=== PATIENT | male | born 1985 | race Caucasian/White ===

== ENCOUNTER 2016-08-03 12:25 | Inpatient (IN) | payer OTHER ==
--- NOTE | ~2016-08-03 | HP ---
Unit #: [id number] #: [id number] Patient: LETY PIERCE [id number] [place] [address] [id number] I MR#: [id number] NAME: LETY PIERCE ROOM: P256 Age: 31 Sex: M Admission Date: 08/03/2016 : 1985 Attending Physician: Joe Alvarado M.D. Admitting Physician: Joe Alvarado M.D. HISTORY AND PHYSICAL HISTORY OF PRESENT ILLNESS The patient is a 31-year-old male admitted to [address] [place] [address] on 08/03/2016 for suicidal ideation. PAST MEDICAL HISTORY 1. Epilepsy 2. Hepatitis C 3. History of polysubstance abuse PAST SURGICAL HISTORY 1. A brain tumor removal 2. Tonsillectomy The patient is unemployed. He lives with his girlfriend. He has a history of polysubstance abuse but hasn't used any drugs in months. FAMILY MEDICAL HISTORY Noncontributory. ALLERGIES No known drug allergies. CURRENT MEDICATIONS Lamictal and Keppra. REVIEW OF SYSTEMS CONSTITUTIONAL: No fever or chills. HEENT: Denies any sore throat, ear pain or runny nose. CARDIOVASCULAR: Denies chest pain, irregular heart rhythm or palpitations. CHEST: Denies shortness of breath or cough. No hemoptysis. GASTROINTESTINAL: Denies nausea, vomiting, diarrhea or chronic constipation. ENDOCRINE: Denies history of increased thirst or urination. No recent significant weight loss or gain. GENITOURINARY: Denies dysuria, frequency, or hematuria. SKIN: The patient complains of knot in his left antecubital space. HEMATOLOGIC: Denies history of increased bleeding or bruising. MUSCULOSKELETAL: Denies any hot, swollen joints. No generalized muscle pain. NEUROLOGIC: Denies problems with vision or speech. No frequent, severe headaches. No numbness, tingling or weakness in any extremities. Denies loss of bladder or bowel control. Unit #: [id number] #: [id number] Patient: LETY PIERCE PHYSICAL EXAM GENERAL: He is awake, alert and oriented in no acute distress. VITAL SIGNS: Temperature 98.5, heart rate 66, respiration 16, blood pressure 152/100. HEIGHT: 5'6". WEIGHT: 199 pounds. SKIN: Note a 1 centimeter cyst and in the left antecubital space of his left arm. HEENT: Normocephalic. TMs not viewed. Oral and nasal passages clear. Conjunctivae clear. PERRLA. EOMs intact. NECK: Supple without lymphadenopathy or thyromegaly. HEART: Regular rate and rhythm without murmur. LUNGS: Clear. ABDOMEN: Soft, nontender. : Not done. EXTREMITIES: No evidence of cyanosis, clubbing or edema. Moves all without focal deficit. NEUROLOGICAL: Grossly within normal limits. Cranial Nerves: II: Visual burks are intact. III, IV AND : Extraocular movements are intact. Pupils are equal, round and reactive to light. V: Facial sensation is grossly normal. VII: Facial movements and expression are normal. VIII: Auditory acuity grossly intact. IX, X: Uvula is midline. Phonation is normal. XI: Patient shrugs shoulders and turns head normally. XII: Tongue protrudes in the midline. Sensory and Motor Function: Sensory and motor sensation is grossly normal. Motor: moves all extremities well. IMPRESSION 1. Psychiatric admission. 2. Epilepsy. 3. Hepatitis C. 4. History of polysubstance abuse. 5. Left antecubital cyst. RECOMMENDATIONS Psychiatric per psychiatrist. MEDICAL: No contraindication to participate in facility activities. MEDICAL PROGNOSIS Good. MEDICAL CONDITION Stable. Dictated by... Julio Cesar Hayes/du TD: 08/04/2016 01:38 Unit #: [id number] #: [id number] Patient: LETY PIERCE JOB #: [id number] HISTORY AND PHYSICAL Page 1 of 1 X LAVERNE SIMS APRN HISTORY AND PHYSICAL
--- NOTE | ~2016-08-03 | PN ---
Unit #: [id number] #: [id number] Patient: LETY PIERCE [id number] [facility] [address] [place] [address] [id number] I MR#: [id number] NAME: LETY PIERCE ROOM: P256 Age: 31 Sex: M Admission Date: 08/03/2016 : 1985 Attending Physician: Joe Alvarado M.D. Admitting Physician: Kristian Linn PROGRESS NOTES DATE 08/10/2016 DISCUSSION This is a 31-year-old white male who is here with issues of ongoing bipolar depression with psychosis. The patient reports overall symptoms with SI hallucinations continue to improve. He reports sleeping better last night. He continues to be going to groups and activities. Staff reported the patient more compliant with redirection in terms of boundaries. The patient denying any acute complaints and did have blood draw this morning. Test results still pending at this time. MENTAL STATUS EXAMINATION GENERAL APPEARANCE: Moderately groomed white male, fairly cooperative, responsive to interview process. Speech was clear and coherent, normal prosody. Mood was "better", less depressed, less constricted affect. Thought process and content are grossly organized and linear. No overt evidence of delusions. Auditory hallucinations improving. SI improving no active plan or intent. The patient's memory is generally intact. Associations are normal. Cognitive function is at baseline. Alert and oriented x4. Insight and judgement is improving. RECOMMENDATIONS We will continue patient's admission for ongoing issues for resolving depression bipolar nature. The patient tolerating medication changes well. Lab results still pending. SI and hallucinations are continuing to resolve most likely disposition to a.m. if progress is maintained. Most likely will require community followup and psych IOP. Dictated by... Kristian Lnin/du TD: 08/11/2016 03:58 JOB #: [id number] Unit #: [id number] #: [id number] Patient: LETY PIERCE PROGRESS NOTES Page 1 of 1 X Joe Alvarado MD PROGRESS NOTE
--- NOTE | ~2016-08-03 | PA ---
Unit #: [id number] #: [id number] Patient: LETY PIERCE [id number] [place] [address] [id number] I MR#: [id number] NAME: LETY PIERCE ROOM: P256 Age: 31 Sex: M Admission Date: 08/03/2016 : 1985 Date of Assessment: 08/04/2016 Attending Physician: Joe Alvarado M.D. Admitting Physician: Joe Alvarado M.D. PSYCHIATRIC ASSESSMENT LOCATION Our [address], room #256, bed #1. DATE OF SERVICE 08/04/2016. INFORMANTS The patient and chart, both seemed reliable. CHIEF COMPLAINT Included my depression has not gotten any better. HISTORY OF PRESENT ILLNESS This is a 31-year-old white male with a longstanding history of significant depressive problems as well as polysubstance dependency. Substances included amphetamines, alcohol, opioids, and "all others that I can get his hands on." He says he has been sober now for about 3 months. The patient has reported longstanding issues with depression that he self-treated with the substances since age of 10. He reports having symptoms now of anhedonia, worthlessness, hopelessness, poor energy, disrupted sleep, a lot of mood swings. He does have a history of being diagnosed bipolar when he was in long-term and put on lithium with good response, but no other treatments and apparently after he was released, he rapidly stopped using as he return to substance abuse. The patient reports motivations now include being there for his 2 daughters as well as surviving family members. Overall, his support is limited. At this time, there is upcoming court issues apparently per the chart and the patient. The patient continues to voice active SI, but no clear plan now. The patient does continue to appear very fearful, fretful, and anxious as well as depressed. The patient compliant per staff and the patient tearful at times during our conversation. PAST PSYCHIATRIC HISTORY Treated inpatient when he was in long-term that was over a year ago, has not been on medication since then and again that was with lithium. No history of actual suicide attempts per se. No history of psychosis. FAMILY HISTORY Significant for grandmother who committed suicide as well as both parents having CD issues and mood problems. SOCIAL HISTORY The patient has 2 children. They are with their own mother's and/or Unit #: [id number] #: [id number] Patient: WHITE,LETY family. The patient is essentially on disability. He does have some support through surviving family, but he is on his own more or less. MEDICAL HISTORY Significant for seizures and a brain tumor removal in 2005 per the chart. MEDICATION HISTORY Included Keppra 1000 mg b.i.d. for seizure prophylaxis as well as Lamictal 150 mg b.i.d. for seizure prophylaxis. ALLERGIES Include no known drug allergies. SUBSTANCE ABUSE HISTORY As noted above, the patient was somewhat vague and overall details with various treatment programs both locally and abroad. No overt significant withdrawal symptoms for him besides heroin, but no history of seizures. MENTAL STATUS EXAMINATION General appearance; he is a limitedly groomed white male, appears somewhat older than stated age, almost disheveled in his appearance. Speech was clear and coherent, normal prosody. The patient was tearful. Mood was depressed and anxious with a congruent affect. Thought process and content were grossly organized and linear. No overt evidence of psychosis. The patient positive for SI at this time, but no clear plan. No HI though. The patient was positive for hopelessness and worthlessness. The patient's memory is grossly intact. Associations are normal. His cognitive functioning was at baseline. Alert and oriented x4. Insight and judgment are poor. ASSETS AND LIABILITIES Assets include some support through family and previous exposure to treatment. Liabilities include limited support, comorbid medical issues, outstanding legal charges. ADMITTING DIAGNOSES 1. Bipolar disorder, depressed, severe, without psychotic features. 2. History of opioid dependency. 3. History of alcohol abuse, unclear about other diagnoses or substances specifically. 4. Seizure disorder. PSYCHIATRIC PLAN Plan will be to continue the patient's admission for safety and stabilization for ongoing issues with his depressed mood and suicidal ideation. The patient had been placed on appropriate precautions and will be started on lithium carbonate ER 450 mg at bedtime to help with mood stabilization. The patient has had a positive response to this in the past and will start there especially given his seizure history, would want to avoid antipsychotics possible since I lowered the seizure threshold. Treatment goal will be resolution of symptoms in a safe controlled environment with discharge planning most likely involving Psych IOP and community followup care for monitoring of his meds. The patient is well versed about the potential side effects of lithium and understands them well for need for monitoring. ESTIMATED LENGTH OF STAY Approximately 5 to 6 days depending on the patient's progress and response Unit #: [id number] #: [id number] Patient: LETY PIERCE to treatment. Dictated by... Kristian Linn/cydney TD: 08/04/2016 23:00 JOB #: [id number] PSYCHIATRIC ASSESSMENT Page 1 of 1 X Joe Alvarado MD X PSYCHIATRIC ASSESSMENT
--- NOTE | ~2016-08-03 | DS ---
Unit #: [id number] #: [id number] Patient: LETY PIERCE [id number] [place] [address] [id number] I MR#: [id number] NAME: LETY PIERCE ROOM: [facility] Age: 31 Sex: M Admission Date: 08/03/2016 : 1985 Discharge Date: 08/11/2016 Attending Physician: Joe Alvarado M.D. DISCHARGE SUMMARY REASON FOR ADMISSION A combination of bipolar depression with suicidal ideation and a history of opiate and alcohol related abuse dependency. DIAGNOSTIC STUDIES Pertinent laboratory data, included, routine blood work that was CMP that was with normal parameters with the exception of AST of 168 and ALT of 322. Ricardo prior to discharge, was noted to be 0.2. CBC was well within normal parameters. Urine screen was positive for marijuana. Urinalysis was positive for 0.02, urobilinogen was otherwise negative, no other tests were performed. HOSPITAL COURSE The patient was admitted for safety and stabilization to the unit for issues of suicidal ideation and depression of a bipolar nature. The patient has had a long-standing history of this treated in the past with lithium but because of substance abuse including opiate dependency and alcohol abuse he came off of this medication several months ago if not years ago, has noticed a steady decline in his presentation. He has been sober now for about three months but has noticed his mood has only gotten worse even when sober. The patient was started on lithium carbonate ER and was titrated up to 600 mg at nighttime. Over the course of the hospitalization, the patient reported his mood getting better. Suicidal ideation resolved, fortunately by the second day of admission from evaluation from my standpoint. He was also reporting issues with auditory hallucinations reporting hearing background chatter that was disturbing and distracting him. No visual hallucinations though. These, too, improved over time as the medications were titrated up that he was also helped with sleep by the way of trazodone 100 mg at bedtime. The patient has a history of seizure disorder and was kept on his home doses of Keppra and Lamictal at his home ranges. The patient went to groups and activities as directed. He did have some peer interaction boundary issues that have had to be redirected by staff but no behavioral issues that had to be managed. He followed direction and care for the most part and there was no overt crossing of the boundaries per staff. At the time of discharge, the patient was denying any SI or HI and his affect was bright. He was positive, goal-motivated to the [facility] program and follow up at [facility] when scheduled. The patient was also focused to go to his daughter's medical appointment tomorrow morning. Overall, the patient was felt to have reached maximum benefit from the inpatient admission and was no longer meeting criteria for dangerousness and was able to be discharged home. Unit #: [id number] #: [id number] Patient: ELTY PIERCE DISCHARGE DIAGNOSES Clayton I Bipolar disorder, depressed, severe with psychotic features. Opiate dependency. Alcohol abuse. Clayton II Clayton III Seizure disorder. Clayton IV Clayton V DISCHARGE INSTRUCTIONS Include follow up care through the [facility] as well as [facility] for the patient to go home with the family. DISCHARGE MEDICATIONS Included: 1. Trazodone 100 mg at bedtime for sleep 2. Ricardo carbonate ER 600 mg at bedtime for mood stabilization 3. Keppra 1000 mg twice a day for seizure prophylaxis 4. Lamictal 150 mg twice a day for seizure prophylaxis and mood stabilization CONDITION AT DISCHARGE Improved. PROGNOSIS Fair if the patient can maintain compliance. DIET AND ACTIVITY Diet is regular and activity is as tolerated with compliance and sobriety both encouraged. Dictated by... Joe Alvarado M.D. LEON/servando TD: 08/11/2016 09:05 JOB #: [id number] DISCHARGE SUMMARY Page 1 of 1 X Joe Alvarado MD X DISCHARGE SUMMARY
--- NOTE | ~2016-08-03 | PN ---
Unit #: [id number] #: [id number] Patient: LETY PIERCE [id number] [place] [address] [id number] I MR#: [id number] NAME: LETY PIERCE ROOM: P256 Age: 31 Sex: M Admission Date: 08/03/2016 : 1985 Attending Physician: Joe Alvarado M.D. Admitting Physician: Joe Alvarado M.D. [facility] PROGRESS NOTES DATE OF SERVICE: 08/05/2016 LOCATION Our [facility], [address] [place] [address], room #256, bed #1. SUBJECTIVE This is a 31-year-old white male who is here with significant issues of bipolar depression. The patient was restarted on lithium last night as well as trazodone for sleep and he did tolerate those well. He reported sleeping well with no residual side effects. He is complaining today of still having depression and suicidal ideation, but no clear plan. The patient also reported that he has been having auditory hallucinations of a background chatter for the last few weeks. There is a new symptom that has him concerned. He denied talking about it yesterday because he was concerned of what it might mean in terms of his overall pathology, but he seemed more willing to discuss it today. No I think of a command nature. No visual hallucinations, but the patient did seem disturbed by the auditory hallucinations and regardless is still significantly depressed and still having active SI. MENTAL STATUS EXAMINATION General appearance, is a limitedly groomed white male, appears older than stated age, fairly cooperative, responsive to the interview process with good eye contact. Speech was clear and coherent with prosody. Mood was depressed with a congruent affect. Thought process and content are fairly organized and linear. No overt evidence of delusions, but the patient reports having vague auditory hallucinations of a background chatter nature. No command, though the patient still having active SI, but no plan today. No HI. The patient's memory is grossly intact. Associations are normal. Cognitive functioning is at baseline. Alert and oriented x4. Insight and judgment are limited. ASSESSMENT AND RECOMMENDATION We will continue the patient's admission for further safety and stabilization, given ongoing issues with depression, suicidal ideation, and probable auditory hallucinations. The patient tolerating the restart of the lithium. He has only had one dose thus far, but further time to stabilize the patient in his current state is crucial to his care for symptoms as noted above. We will continue to monitor regularly and make further adjustments as needed. Dictated by... Unit #: [id number] #: [id number] Patient: LETY PIERCE M.D. SB/cydney TD: 08/05/2016 11:07 JOB #: [id number] [facility] PROGRESS NOTES Page 1 of 1 X Joe Alvarado MD X PROGRESS NOTE
--- NOTE | ~2016-08-03 | PN ---
Unit #: [id number] #: [id number] Patient: LETY PIERCE [id number] [place] [address] [id number] I MR#: [id number] NAME: LETY PIERCE ROOM: P256 Age: 31 Sex: M Admission Date: 08/03/2016 : 1985 Attending Physician: Joe Alvarado M.D. Admitting Physician: Joe Alvarado M.D. [facility] PROGRESS NOTES DATE 08/06/2016 LOCATION [facility], [address] [place] [address], room #256, bed #1. SUBJECTIVE UPDATE This is a 31-year-old white male who is here with bipolar issues and depression. The patient reports sleep has continued to show improvement, but he is still reporting issues with mood instability, intermittent SI, which is improving but still present. The patient still appears fretful at times during the interview, but overall is calmer in comparison to admission. Still having occasional auditory hallucinations of background chatter but denying any command issues. No new symptoms today. MENTAL STATUS EXAMINATION General appearance, is a limitedly groomed white male, appears somewhat older than stated age, fairly cooperative, responsive though with good eye contact. Speech was clear and coherent, normal prosody. Mood was anxious, depressed, with a congruent affect. Through process and content were fairly organized and linear. No overt evidence of psychosis. Positive for SI, but no clear plan today. Positive for auditory hallucinations. No HI. Patient' memory was grossly intact. Associations were normal. Cognitive functioning was at baseline. He was alert and oriented x4. Insight and judgment are limited but improving. ASSESSMENT AND RECOMMENDATION Will continue the patient's admission for ongoing issues for depression symptoms related to his bipolar disorder. Will increase the lithium carbonate ER today to 600 mg, to continue with his aggressive treatment for his symptoms since they are persisting but although improving but is a slow rate. Will change trazodone to p.r.n. as patient reports sleep has improved profoundly. We will continue to monitor the patient's behavior in response to treatment. Encourage compliance with groups and activities. Staff reports patient has had some boundary issues on the unit. Nothing that has required redirection but they are monitoring closely and will continue to encourage proper boundaries with the patient during the interview. Dictated by... Joe Alvarado M.D. Unit #: [id number] #: [id number] Patient: LETY PIERCE LEON/carole TD: 08/07/2016 09:24 JOB #: [id number] [facility] PROGRESS NOTES Page 1 of 1 X Joe Alvarado MD PROGRESS NOTE
--- NOTE | ~2016-08-03 | CO ---
Unit #: [id number] #: [id number] Patient: LETY PIERCE [id number] [facility] [address] [place] [address] [id number] MR#: [id number] NAME: LETY PIERCE ROOM: [facility] Age: 31 Sex: M Admission Date: 08/03/2016 : 1985 Attending Physician: Joe Alvarado M.D. Consultation Date: 08/03/2016 CONSULTATION REPORT ORDERING PROVIDER Dr. Alvarado. REASON FOR CONSULT Knot on the patient's left antecubital space. SUBJECTIVE The patient reports that he has a history of IV drug use and he has shot up in his left arm before. He reports that the knot has been there for several months. It is becoming more tender. He can fully move his arm, his wrist, and hand. Denies any heat or erythema from the area. OBJECTIVE The patient has approximately 1-cm cyst noted on this left antecubital space. It is fully mobile. He has good pulses. There is no erythema or edema. This is mildly tender to palpate. He has full range of motion of his limb. ASSESSMENT Left antecubital cyst. PLAN The patient was given his options for surgery outpatient at this time. I do not feel anything medically is necessary. Dictated by... Cami Colbert A.P.R.N. for Kristian Avendaño/cydney TD: 08/03/2016 18:44 JOB #: [id number] Unit #: [id number] #: [id number] Patient: LETY PIERCE CONSULTATION REPORT Page 1 of 1 X CAMI COLBERT APRN CONSULTATION REPORT
--- NOTE | ~2016-08-03 | PN ---
Unit #: [id number] #: [id number] Patient: LETY PIERCE [id number] [facility] [address] [place] [address] [id number] I MR#: [id number] NAME: LETY PIERCE ROOM: P256 Age: 31 Sex: M Admission Date: 08/03/2016 : 1985 Attending Physician: Joe Alvarado M.D. Admitting Physician: Kristian Linn PROGRESS NOTES DATE 08/07/2016 DISCUSSION SUBJECTIVE UPDATE This is a 31-year-old white male, with ongoing issues of bipolar related depression with suicidal ideation. The patient is continuing to report SI present as well as the vague background chatter, auditory hallucinations, he does say they are better in terms of intensity and frequency but both are still present. The patient reports that he tolerated the increased lithium last night but did note even with the trazodone his sleep was poorer compared to the night before. The patient's eye contact continues to be moderate at best and affect depressed. No acting out or behavioral issues. The patient has been compliant with the care. MENTAL STATUS EXAMINATION General appearance is a limitedly groomed white male who appears older than stated age, fairly cooperative, moderate eye contact today. Speech was clear and coherent. Mood was depressed with a constricted affect. Thought process and content were grossly organized, linear, no overt evidence delusions. Patient continuing to have auditory hallucinations of a non-descript nature that are improving. He continues to have suicidal ideation that is improving but still present, no HI. The patient's memory is grossly intact. Associations were normal. Cognitive functioning is at baseline x4. Insight and judgment is limited but improving slowly. RECOMMENDATIONS We will continue the patient's admission for safety and stabilization for ongoing issues with his depression. The patient tolerating increased lithium, will continue to monitor with likely check on lithium level in the next 24 to 48 hours if possible. The patient continuing to have active SI and psychosis which is concerning, will monitor progress and make determination for further disposition care as that improves. Dictated by... Kristian Linn/servando TD: 08/08/2016 05:58 JOB #: [id number] Unit #: [id number] #: [id number] Patient: STANLETY BOGGSYEN PROGRESS NOTES Page 1 of 1 X Joe Alvarado MD PROGRESS NOTE
--- NOTE | ~2016-08-03 | PN ---
Unit #: [id number] #: [id number] Patient: LETY PIERCE [id number] [facility] [address] [place] [address] [id number] I MR#: [id number] NAME: LETY PIERCE ROOM: P256 Age: 31 Sex: M Admission Date: 08/03/2016 : 1985 Attending Physician: Joe Alvarado M.D. Admitting Physician: Kristian Linn PROGRESS NOTES DATE 08/08/2016 SUBJECTIVE UPDATE This is a 31-year-old white male with ongoing issues of bipolar depression. Patient reports today overall that mood is doing better. He is still having occasional issues with significant depression and suicidal ideation but those are improving as are his "auditory hallucinations." Patient reports last night he had a bad phone call with his ex- regarding their child and that made him very upset and he noticed at that point when he became upset that the background voices flared up again. Patient reports feeling okay at the moment. He is more calm. He says he is still ____ somewhat today but better compared to this point yesterday. Sleep was improved last night even with increased stressor with the call. Staff reports patient has been compliant with groups and activities. Still needing some redirection with peers at times but no behavioral issues that need management. MENTAL STATUS EXAMINATION General appearance is a moderately groomed white male improved today. Speech was clear and coherent. Mood was "better," less depressed with a congruent affect. Thought processes and content are grossly organized, linear. No overt psychosis at this moment. Hallucinations are improving. SI is present but improving. No HI. Patient's memory is grossly intact. Associations are normal. Cognitive functioning is at baseline. Alert and oriented times four. Insight and judgement is improving, still limited. RECOMMENDATIONS Continue patient's admission for safety and stabilization. Overall the increase in lithium seems to be effective. Will monitor patient's response and treatment and make sure that the improvements are maintained. Patient has shown fluctuation in last 48 hours up and down, so further monitoring is appropriate. Will continue care at this time. Patient is continuing to receive direction for appropriate interaction with peers and staff and direction for follow up with groups and activities. Dictated by... Joe Alvarado M.D. /dalila Unit #: [id number] #: [id number] Patient: LETY PIERCE TD: 08/08/2016 22:39 JOB #: [id number] BRIAN PROGRESS NOTES Page 1 of 1 X Joe Alvarado MD PROGRESS NOTE
--- NOTE | ~2016-08-03 | PN ---
Unit #: [id number] #: [id number] Patient: LETY PIERCE [id number] [facility] [address] [place] [address] [id number] I MR#: [id number] NAME: LETY PIERCE ROOM: P256 Age: 31 Sex: M Admission Date: 08/03/2016 : 1985 Attending Physician: Joe Alvarado M.D. Admitting Physician: Kristian Linn PROGRESS NOTES DATE 08/09/2016 DISCUSSION This is a 31-year-old white male who is here with issues of ongoing depression, bipolar type, with suicidal ideation. Patient reports not sleeping well last night largely due to roommate causing a disturbance in the room and difficulty going back to sleep after that. He does report his mood overall is continuing to do fairly well. Suicidal ideation is improving as are the hallucinations. Patient continues to need redirection from staff regarding interaction with peers but that is not escalating. Overall the patient's affect was brighter today. He reports feeling better. Discussed the necessity for lab drawn in the morning, the patient agreed. MENTAL STATUS EXAMINATION GENERAL APPEARANCE: Moderately groomed white male, somewhat improved today. Speech was clear and coherent in ____. Mood was "better", less depressed with a congruent affect. Thought process and content are grossly organized and linear. No overt evidence of delusions. Hallucinations are resolving. SI is resolving, no plan. No HI. Patient's memory was grossly intact. Associations were normal. Cognitive function was at baseline. He is alert and oriented x4. Insight and judgement improving. RECOMMENDATIONS We will continue patient's admission for safety and stabilization. Overall patient making good progress with care. SI and depression are resolving as are the "auditory hallucinations." Patient continuing to work on boundaries with peers, but is attending groups and activities and following directions. No management issues or behavioral problems otherwise. Continue to monitor regularly while on the unit. Dictated by... Kristian Linn TD: 08/10/2016 11:22 JOB #: [id number] Unit #: [id number] #: [id number] Patient: LETY PIERCE PROGRESS NOTES Page 1 of 1 X Joe Alavrado MD X PROGRESS NOTE
[2016-08-04 09:44] LABS: BASOPHIL# 0.1 X10e3 (0-0.3); EOSINOPHIL# 0.4 X10e3 (0-0.7); EOSINOPHIL% 5.4 % (0.0-7.0); HEMATOCRIT 44.7 % (38.0-50.0); LYMPHOCYTE# 1.6 X10e3 (1.0-3.5); LYMPHOCYTE% 22.1 % (17.0-45.0); MEAN CELL VOLUME 89.4 FL (83-96); MEAN CORPUSCULAR HEMOGLOBIN 29.9 PG (28-34); MEAN CORPUSCULAR HGB CONC 33.5 g/dL (30-36); MEAN PLATELET VOLUME 7.6 FL (6.5-11.5); MONOCYTE# 0.9 X10e3 (0-1.0); MONOCYTE% 12.2 % (3.0-12.0); NEUTROPHIL# 4.2 X10e3 (1.5-7.1); NEUTROPHIL% 59.3 % (40-75); PLATELET COUNT 250 X10e3 (140-420); RED BLOOD COUNT 5.01 X10e (3.90-5.60); WHITE BLOOD COUNT 7.1 X10e3 (4.0-10.5)
[2016-08-04 09:56] LABS: DIFF IND NO
[2016-08-04 10:09] LABS: THYROID STIMULATING HORMONE 0.75 uIU/ml (0.34-5.60)
[2016-08-04 10:10] LABS: ALBUMIN SERUM 4.3 g/dL (3.5-5.0); BILIRUBIN,TOTAL 1.1 mg/dL (0.2-2.0); BUN/CREATININE RATIO 11.11; CALCIUM SERUM 9.3 mg/dL (8.4-10.2); CREATININE SERUM 0.9 mg/dL (0.6-1.4); GLOM FILT RATE Estimated 112.6 mL/min (>60); POTASSIUM 4.8 mmol/L (3.5-5.1); PROTEIN TOTAL SERUM 6.8 g/dL (6.0-8.3)
[2016-08-04 10:17] LABS: FREE THYROXIN (T4) 0.66 ng/dL (0.58-1.64)
[2016-08-08 09:35] LABS: URINE APPEARANCE CLEAR; URINE BILIRUBIN NEG (NEG); URINE BLOOD NEG (NEG); URINE COLOR YELLOW; URINE GLUCOSE NEG (NEG); URINE KETONE NEG (NEG); URINE LEUKOCYTE ESTERASE NEG (NEG); URINE NITRATE NEG (NEG); URINE PH 6.5 (5-8); URINE PROTEIN NEG (NEG); URINE SPECIFIC GRAVITY 1.016 (1.003-1.035); URINE UROBILINOGEN 0.2 MG/DL (NEG)
[2016-08-08 10:04] LABS: AMPHETAMINE NEG (NEG); BARBITURATES NEG (NEG); BENZODIAZEPINES NEG (NEG); COCAINE NEG (NEG); MARIJUANA POS (NEG); OPIATES NEG (NEG); TRICYCLIC ANTIDEPRESSANTS NEG (NEG); U METHADONE NEG (NEG)
== END 2016-08-11 10:50 | disposition home or self-care (01) | DRG 885 ==
LOC: P2L 12:25
PROVIDERS: Psychiatry & Neurology Psychiatry
DX: F31.5 Bipolar disorder, current episode depressed, severe, with psychotic features (principal); F11.20 Opioid dependence, uncomplicated; R45.851 Suicidal ideations; Z81.8 Family history of other mental and behavioral disorders; D23.62 Other benign neoplasm of skin of left upper limb, including shoulder; F10.20 Alcohol dependence, uncomplicated; G40.909 Epilepsy, unspecified, not intractable, without status epilepticus; B19.20 Unspecified viral hepatitis C without hepatic coma
CPT/HCPCS: 80053; 80178; 80307; 81003; 84439; 84443; 85025

== ENCOUNTER 2016-08-27 21:00 | Inpatient (IN) | payer OTHER ==
--- NOTE | ~2016-08-27 | PA ---
Unit #: [id number] #: [id number] Patient: LETY PIERCE JR [id number] [place] [address] [id number] I MR#: [id number] NAME: LTEY PIERCE JR ROOM: P258 Age: 31 Sex: M Admission Date: 08/27/2016 : 1985 Date of Assessment: 08/28/2016 Attending Physician: Shahid Hannon M.D. Admitting Physician: Shahid Hannon M.D. Primary Care Physician: Marisela Hoffman PSYCHIATRIC ASSESSMENT INFORMANTS The patient reliability, fair; chart reliability, good. CHIEF COMPLAINT Depression. HISTORY OF PRESENT ILLNESS Lety Pierce is a 31-year-old white male, seen on 2-Thao with the above-mentioned complaint. The patient reported increase in depression, history of previous admission at [facility] [place] and [place], currently receiving outpatient services in [facility]. The patient presented due to increase in depression and suicidal ideation. In the last 24 hours, the patient reported receiving legal news involving the custody of his youngest child while increased depression, suicidal ideation, and suicidal thoughts. The patient reported decreased energy, hopelessness, worthlessness, inability to complete his ADL, withdrawn, isolative, and flat affect. The patient reported not having anything to live for. The patient reported unable to contract for safety. At this time, he reports takes medication. The patient also reported hearing a voice or noise in his head. The patient denied any other psychotic symptom. The patient reported smoking marijuana daily, but denied any use of other substances. The patient is needing inpatient admission at this time for psychiatric stabilization. PAST PSYCHIATRIC HISTORY Remarkable for history of previous treatment in [facility] level of care, treatment at [facility] and in [place] as an inpatient for chemical dependency and depression. FAMILY HISTORY AND SOCIAL HISTORY The patient has a poor support system. History of substance abuse in immediate family member. Reported depression in father and grandmother. No known history of any abuse. MEDICAL HISTORY History of hepatitis C, history of brain tumor, and epilepsy. Musculoskeletal; muscle strength and tone, no atrophy or abnormal movement. Gait normal. MEDICATION HISTORY The patient is currently on Keppra 1000 mg b.i.d., lithium carbonate 300 mg at bedtime, Lamictal 150 mg b.i.d., and trazodone 100 mg at bedtime. ALLERGIES Unit #: [id number] #: [id number] Patient: LETY PIERCE JR No known drug allergies. SUBSTANCE ABUSE HISTORY Marijuana abuse; age of onset 10; crack cocaine, age of onset 16; opioid, age of onset 20; amphetamine, age of onset 10; benzodiazepine, age of onset 11; and synthetic substances, age of onset 28. The patient reported longest period of sobriety, 7-1/2 months. The patient reported last period of sobriety, 04/2016. The patient reported history of blackouts, history of hepatitis, history of IV drug use, but no withdrawal symptoms except for vomiting, nausea, and depression. MENTAL STATUS EXAMINATION CONSTITUTIONAL: Measurement of vital signs; temperature 98.3, pulse 98, respirations 16, and blood pressure 129/84. Height 5 feet 4 inches and weight 185 pounds. GENERAL APPEARANCE: The patient dressed casually. The patient did not show any facial deformity. MUSCULOSKELETAL: Please see above. PSYCHIATRIC EXAMINATION Description of speech; regular rate, normal volume, normal articulation, coherent. Description of thought process, goal directed. Description of association, intact. Description of abnormal psychotic thinking; the patient denied any hallucination or delusions, but depression, suicidal ideation, and history of marijuana abuse. Description of the patient's judgment: Concerning everyday activity, poor. Social situation, poor. Concerning psychiatric condition, poor. Complete mental status examination; oriented in time, place, and person. Recent and remote memory, fair. Attention span and concentration, fair. Language; able to name object, repeat phrases. Fund of knowledge; aware of current event, passive vocabulary intact. Mood and affect, sad and dysphoric. Insight and judgment, fair to poor. ASSETS AND LIABILITIES The patient is articulate and able to take care of his ADL. Liability, history of depression and substance abuse. ADMITTING DIAGNOSES Psychiatric: 1. Major depressive disorder, recurrent, severe, F33.3. 2. Cannabis abuse, moderate, F12.20. Secondary diagnosis: Deferred. Medical diagnoses: History of seizure disorder, history of brain tumor, history of hepatitis C. Stressors: Psychosocial stressors. PSYCHIATRIC PLAN, TREATMENT GOAL, AND DISCHARGE PLAN 1. Advised to admit the patient on the inpatient unit. Provide safe, supportive, and structured environment. 2. Ordered labs; CBC, CMP, UA, and UDS. 3. Advised to continue with home medications; Lamictal, Zyprexa, Keppra, Desyrel, and Lithobid. If needed, consider SSRI. 4. The patient is to attend all the programing, group therapy, individual therapy, and medication management. 5. Treatment goal is to attain euthymic mood, gain insight into his Unit #: [id number] #: [id number] Patient: LETY PIERCE JR problem, and learn coping skills. 6. Discharge plan: Plan is to stabilize the patient and consider followup in outpatient program. ESTIMATED LENGTH OF STAY 5 days. Dictated by... Kristian Child/cydney TD: 08/29/2016 01:43 JOB #: [id number] PSYCHIATRIC ASSESSMENT Page 1 of 1 X Shahid Hannon MD X PSYCHIATRIC ASSESSMENT
--- NOTE | ~2016-08-27 | DS ---
Unit #: [id number] #: [id number] Patient: LETY PIERCE JR [id number] [place] [address] [id number] I MR#: [id number] NAME: LETY PIERCE JR ROOM: P258 Age: 31 Sex: M Admission Date: 08/27/2016 : 1985 Discharge Date: 09/01/2016 Attending Physician: Shahid Hannon M.D. Primary Care Physician: Marisela Hoffman DISCHARGE SUMMARY REASON FOR ADMISSION Depression and suicidal ideation. DIAGNOSTIC STUDIES LABORATORY RESULTS: Remarkable for urine drug screen positive for amphetamine and marijuana. HOSPITAL COURSE The patient was admitted to inpatient unit on 08/27/2016 and discharged on 09/01/2016. The patient was treated on the inpatient unit with group therapy, individual therapy, and medication management. The patient responded well with the above modalities of treatment. The patient was subsequently discharged with a plan to follow up in outpatient program. DISCHARGE MEDICATIONS Lithobid SR 600 mg at bedtime for mood stabilization, trazodone 100 mg at bedtime for sleep, Keppra 1000 mg b.i.d. for seizure disorder, Zyprexa 10 mg daily for mood stabilization, Lamictal 150 mg b.i.d. for seizure disorder, and Celexa 20 mg daily for depression. DISCHARGE DIAGNOSES Psychiatric: 1. Bipolar mood disorder, not otherwise specified, F31.89. 2. Cannabis abuse, moderate, F12.20. Secondary diagnosis: Deferred. Medical diagnoses: History of seizure disorder, history of brain tumor, history of hepatitis C. Stressors: Psychosocial stressors. DISCHARGE INSTRUCTIONS The patient is to follow up in outpatient clinic as per social work specialist. CONDITION ON DISCHARGE The patient was pleasant and cooperative. Denied any psychotic symptom or any suicidal ideation. PROGNOSIS Guarded. DIET AND ACTIVITY As tolerated. Unit #: [id number] #: [id number] Patient: LETY PIERCE JR Dictated by... Kristian Child/cydney TD: 09/02/2016 03:10 JOB #: [id number] DISCHARGE SUMMARY Page 1 of 1 X Shahid Hannon MD DISCHARGE SUMMARY
--- NOTE | ~2016-08-27 | PN ---
Unit #: [id number] #: [id number] Patient: LETY PIERCE JR [id number] [facility] [address] [place] [address] [id number] MR#: [id number] NAME: LETY PIERCE JR ROOM: P258 Age: 31 Sex: M Admission Date: 08/27/2016 : 1985 Attending Physician: Shahid Hannon M.D. Admitting Physician: Shahid Hannon M.D. Primary Care Physician: Marislea TORRES PROGRESS NOTES DATE OF SERVICE: 08/30/2016 DISCUSSION Lety Pierce is a 31-year-old male, seen on 08/30/2016. The patient interviewed, chart reviewed, and obtained information from nursing staff. The patient continues to be isolative, flat affect, guarded, withdrawn, isolative. The patient's vital signs stable temperature 98.4, . REVIEW OF SYSTEMS Complete review of systems unremarkable. MENTAL STATUS EXAMINATION General appearance, the patient dressed casually. Attention span and concentration, fair. Oriented in place and person. Mood and affect, sad, depressed, withdrawn, isolative, guarded, passive, SI. Denied any homicidal ideation or psychotic symptom. Recent and remote memory, poor. Insight and judgment, poor. DIAGNOSIS Bipolar mood disorder, not otherwise specified. ASSESSMENT/PLAN Advised to continue with current medication and therapeutic protocol. If needed, consider further adjustment of medication. Dictated by... Kristian Child/cydney TD: 09/01/2016 01:22 JOB #: [id number] Unit #: [id number] #: [id number] Patient: LETY PIERCE JR [facility] PROGRESS NOTES Page 1 of 1 X Shahid aHnnon MD PROGRESS NOTE
--- NOTE | ~2016-08-27 | HP ---
Unit #: [id number] #: [id number] Patient: LETY PIERCE JR [id number] [place] [address] [id number] I MR#: [id number] NAME: LETY PIERCE JR ROOM: P258 Age: 31 Sex: M Admission Date: 08/27/2016 : 1985 Attending Physician: Shahid Hannon M.D. Admitting Physician: Shahid Hannon M.D. Primary Care Physician: Marisela Hoffman HISTORY AND PHYSICAL Lety is a 31-year-old male admitted to [address] [place] [address] on 08/27/2016 for depression. He had a recent admission on 08/03/2016. I have reviewed the history and physical from that admission and there are no changes. Dictated by... Julio Cesar Lemus/dalila TD: 08/28/2016 18:03 JOB #: [id number] HISTORY AND PHYSICAL Page 1 of 1 X QUANG LUNA APRN HISTORY AND PHYSICAL
--- NOTE | ~2016-08-27 | PN ---
Unit #: [id number] #: [id number] Patient: LETY PIERCE JR [id number] [facility] [address] [place] [address] [id number] I MR#: [id number] NAME: LETY PIERCE JR ROOM: P258 Age: 31 Sex: M Admission Date: 08/27/2016 : 1985 Attending Physician: Shahid Hannon M.D. Admitting Physician: Shahid Hannon M.D. Primary Care Physician: Marisela TORRES PROGRESS NOTES DATE 08/29/2016 DISCUSSION Lety Pierce is a 31-year-old male seen on 08/29/2016. The patient interviewed, chart reviewed. Obtained information from nursing staff. The patient continues to be isolative, flat affect, withdrawn. The patient still having suicidal ideation unable to contract for safety. The patient compliant with medication. Complete review of systems unremarkable. MENTAL STATUS EXAMINATION General appearance, the patient dressed casually. Attention span and concentration fair. Oriented to time, place and person. Mood and affect sad, dysphoric. Speech slow in volume and rate. Thought process circumstantial. The patient denied any thoughts of harming others but having suicidal ideation, guarded, withdrawn, isolative. Recent and remote memory poor. Insight and judgement poor. DIAGNOSES Bipolar mood disorder NOS ASSESSMENT/PLAN Advise to continue with current medication and therapeutic protocol. If needed consider further adjustment of medication. Dictated by... Kristian Child/du TD: 09/01/2016 02:09 JOB #: [id number] Unit #: [id number] #: [id number] Patient: LETY PIERCE JR [facility] PROGRESS NOTES Page 1 of 1 X Shahid Hannon MD X PROGRESS NOTE
--- NOTE | ~2016-08-27 | PN ---
Unit #: [id number] #: [id number] Patient: LETY PIERCE JR [id number] [facility] [address] [place] [address] [id number] I MR#: [id number] NAME: LETY PIERCE JR ROOM: P258 Age: 31 Sex: M Admission Date: 08/27/2016 : 1985 Attending Physician: Shahid Hannon M.D. Admitting Physician: Shahid Hannon M.D. Primary Care Physician: Dread Nevarez PROGRESS NOTES DATE OF SERVICE 08/31/2016 DISCUSSION Lety Pierce is a 31-year-old male. Patient interviewed, chart reviewed, and obtained information from nursing staff. Patient compliant and cooperative. Mood sad, dysphoric. Flat affect, guarded. Patient did not show any aggressive behavior. Withdrawn and isolative. REVIEW OF SYSTEMS Complete review of systems unremarkable. MENTAL STATUS EXAMINATION GENERAL APPEARANCE: Patient dressed casually. ATTENTION SPAN AND CONCENTRATION: Fair. ORIENTATION: Oriented in time, place, and person. MOOD AND AFFECT: Sad, dysphoric. Flat affect, guarded. THOUGHT PROCESS: Patient denied any thoughts of harming self or others. RECENT AND REMOTE MEMORY: Poor. INSIGHT AND JUDGEMENT: Poor. DIAGNOSES Bipolar mood disorder, NOS. ASSESSMENT/PLAN Advised to continue with current medication and therapeutic protocol. If needed, consider further adjustment of medication. Dictated by... Kristian Child/shelbi TD: 09/02/2016 09:45 JOB #: [id number] Unit #: [id number] #: [id number] Patient: LETY PIERCE JR [facility] PROGRESS NOTES Page 1 of 1 X Shahid Hannon MD PROGRESS NOTE
[2016-08-28 09:55] LABS: BASOPHIL# 0.1 X10e3 (0-0.3); BASOPHIL% 0.9 % (0-2.5); EOSINOPHIL# 0.4 X10e3 (0-0.7); EOSINOPHIL% 5.3 % (0.0-7.0); HEMATOCRIT 43.5 % (38.0-50.0); HEMOGLOBIN 14.7 gm/dL (13.0-16.0); LYMPHOCYTE# 1.9 X10e3 (1.0-3.5); LYMPHOCYTE% 25.7 % (17.0-45.0); MEAN CELL VOLUME 90.1 FL (83-96); MEAN CORPUSCULAR HEMOGLOBIN 30.5 PG (28-34); MEAN CORPUSCULAR HGB CONC 33.8 g/dL (30-36); MEAN PLATELET VOLUME 7.8 FL (6.5-11.5); MONOCYTE% 13.8 % (3.0-12.0); NEUTROPHIL% 54.3 % (40-75); PLATELET COUNT 232 X10e3 (140-420); RED BLOOD COUNT 4.83 X10e (3.90-5.60); RED CELL DISTRIBUTION WIDTH 13.7 % (11.0-15.5); WHITE BLOOD COUNT 7.3 X10e3 (4.0-10.5)
[2016-08-28 10:21] LABS: ALBUMIN SERUM 3.7 g/dL (3.5-5.0); BILIRUBIN,TOTAL 0.4 mg/dL (0.2-2.0); CALCIUM SERUM 8.7 mg/dL (8.4-10.2); GLOM FILT RATE Estimated 99.2 mL/min (>60)
[2016-08-28 10:34] LABS: DIFF IND NO
[2016-08-29 09:51] LABS: URINE APPEARANCE CLEAR; URINE BILIRUBIN NEG (NEG); URINE BLOOD NEG (NEG); URINE COLOR YELLOW; URINE GLUCOSE NEG (NEG); URINE KETONE NEG (NEG); URINE LEUKOCYTE ESTERASE NEG (NEG); URINE NITRATE NEG (NEG); URINE PH 6.5 (5-8); URINE PROTEIN NEG (NEG); URINE SPECIFIC GRAVITY 1.013 (1.003-1.035); URINE UROBILINOGEN 0.2 MG/DL (NEG)
[2016-08-29 10:38] LABS: AMPHETAMINE POS (NEG); BARBITURATES NEG (NEG); BENZODIAZEPINES NEG (NEG); COCAINE NEG (NEG); MARIJUANA POS (NEG); OPIATES NEG (NEG); TRICYCLIC ANTIDEPRESSANTS NEG (NEG); U METHADONE NEG (NEG)
== END 2016-09-01 11:45 | disposition home or self-care (01) | DRG 885 ==
LOC: P2L 22:53
PROVIDERS: Psychiatry & Neurology Psychiatry
DX: F31.89 Other bipolar disorder (principal); G40.909 Epilepsy, unspecified, not intractable, without status epilepticus; B19.20 Unspecified viral hepatitis C without hepatic coma; F12.20 Cannabis dependence, uncomplicated
CPT/HCPCS: 80053; 80307; 81003; 85025